=== PATIENT | female | born 1995 | race Caucasian/White ===

== ENCOUNTER 2021-04-16 23:48 | Emergency (ER) | payer OTHER ==
[2021-04-17 00:05] VITALS: BP 116/78; PULSE 106; TEMP 98; BMI 26.2
[2021-04-17] MEDS ORDERED: FAMOTIDINE 10 MG TABLET PO ONE (01:08)
[2021-04-17] MEDS ORDERED: DEXAMETHASONE SOD PHOSPHATE 10 MG/1 ML VIAL IM ONE (01:08)
[2021-04-17] MEDS ORDERED: diphenhydrAMINE HCL 25 MG CAPSULE (FP) PO ONE (01:08)
[2021-04-17] MEDS ORDERED: FAMOTIDINE 20 MG TABLET ONE (01:15)
== END 2021-04-17 02:52 | disposition home or self-care (01) ==
LOC: JER 23:48
DX: L50.9 Urticaria, unspecified (principal)
CPT/HCPCS: 84703; 99283-25; J1100

== ENCOUNTER 2022-01-22 17:14 | Emergency (ER) | payer OTHER ==
[2022-01-22 17:55] VITALS: BP 112/79; TEMP 99.8; BMI 26.3
[2022-01-22] MEDS ORDERED: SODIUM CHLORIDE 0.9% 500 ML INFUS.BAG IV ONE (18:24)
[2022-01-22 19:21] VITALS: PULSE 87
[2022-01-23 12:11] LABS: SARS-CoV-2 NAA Not Detected (Not Detected)
== END 2022-01-22 19:45 | disposition home or self-care (01) ==
LOC: JER 17:14
DX: O26.893 Other specified pregnancy related conditions, third trimester (principal); R50.9 Fever, unspecified; J09.X2 Influenza due to identified novel influenza A virus with other respiratory manifestations; R05.1 Acute cough; Z3A.28 28 weeks gestation of pregnancy
CPT/HCPCS: 87804; 87807; 99283-25; C9803-CS; U0003; U0005

== ENCOUNTER 2022-04-24 08:15 | Inpatient (IN) | payer OTHER ==
[2022-04-24] MEDS ORDERED: BUTORPHANOL TARTRATE 1 MG/ML VIAL IVPB PRN ×2 (09:35)
[2022-04-24 09:53] VITALS: BMI 27.8
[2022-04-24 10:56] LABS: BASO % 0.2 % (0-2.0); HEMATOCRIT 36.7 % (32.4-45.2); HEMOGLOBIN 12.6 GM/dL (10.7-15.3); LYMPH % 17.9 % (8-40); MCH 31.5 pg (25.7-33.7); MCHC 34.4 g/dl (32.0-36.0); MEAN CELL VOLUME 91.6 fl (80-96); MEAN PLT VOLUME 7.9 fl (7.5-11.1); MONO % 6.4 % (3.8-10.2); NEUT % 74.5 % (42.8-82.8); PLATELET COUNT 235 10^3/uL (134-434); RBC 4.01 M/mm3 (3.60-5.2); RDW 13.8 % (11.6-15.6); WHITE BLOOD COUNT 8.2 K/mm3 (4.0-10.0)
[2022-04-24 11:00] LABS: INR 0.9 (0.83-1.09); PROTHROMBIN TIME (PATIENT) 10.3 SEC (9.7-13.0)
[2022-04-24 11:03] LABS: ACTIVATED PTT 28.9 SECONDS (25.2-36.5)
[2022-04-24 11:28] LABS: CREATININE 0.6 mg/dL (0.55-1.3)
[2022-04-24] MEDS: ELECTROLYTE-148 SOLN 1,000 ML IV SCH ×3 (12:30→21:30)
[2022-04-24] MEDS ORDERED: PROMETHAZINE HCL 25 MG/1 ML VIAL ONE (12:32)
[2022-04-24] MEDS ORDERED: BUTORPHANOL TARTRATE 2 MG/ML VIAL ONE (12:32)
[2022-04-24] MEDS ORDERED: PROMETHAZINE HCL 25 MG/1 ML VIAL IVPB ONE (13:00)
[2022-04-24] MEDS ORDERED: FENTANYL/BUPIVACAINE/NS/PF - PCEA - 50 ML DISP.SYRIN EP ONE ×4 (15:13→23:06)
[2022-04-24] MEDS: FENTANYL/BUPIVACAINE/NS/PF - PCEA - 50 ML DISP.SYRIN EP SCH ×2 (15:39→19:35)
[2022-04-24] MEDS ORDERED: NALOXONE HCL 0.4 MG/ML VIAL IVPUSH PRN (15:56)
[2022-04-25] MEDS ORDERED: AMPICILLIN - 2 GM in SODIUM CHLORIDE 100 ML IVPB ONE (01:00)
[2022-04-25] MEDS ORDERED: AMPICILLIN SODIUM 2 GM VIAL ONE (01:07)
[2022-04-25] MEDS ORDERED: IBUPROFEN 800 MG/8 ML IJ IVPB PRN (02:06)
[2022-04-25] MEDS ORDERED: ACETAMINOPHEN 325 MG TABLET (FP) PO PRN (02:06)
[2022-04-25] MEDS ORDERED: METHYLERGONOVINE MALEATE 0.2 MG/1 ML AMP IM PRN (02:06)
[2022-04-25] MEDS ORDERED: OXYTOCIN 20 UNITS in 0.9% NS 20 UNIT/1,000 ML INFUS.BAG IV SCH (02:15)
[2022-04-25] MEDS ORDERED: FENTANYL/BUPIVACAINE/NS/PF - PCEA - 50 ML DISP.SYRIN EP ONE ×2 (02:43→05:48)
[2022-04-25] MEDS: FENTANYL/BUPIVACAINE/NS/PF - PCEA - 50 ML DISP.SYRIN EP SCH ×2 (02:50→05:50)
[2022-04-25] MEDS ORDERED: OXYTOCIN 30 UNITS in 0.9% NS 30 UNIT/500 ML INFUS.BAG IVPB SCH (04:15)
[2022-04-25] MEDS ORDERED: AMPICILLIN SODIUM 1 GM VIAL ONE (04:41)
[2022-04-25] MEDS ORDERED: AMPICILLIN - 1 GM in SODIUM CHLORIDE 100 ML IVPB SCH (05:00)
[2022-04-25] MEDS ORDERED: LIDOCAINE HCL/EPINEPHRINE/PF 20 ML VIAL ONE (06:39)
[2022-04-25] MEDS ORDERED: SUCCINYLCHOLINE CHLORIDE 200 MG/10 ML SYRINGE ONE (07:00)
[2022-04-25] MEDS ORDERED: PROPOFOL 20 ML ONE ×3 (07:01)
[2022-04-25] MEDS ORDERED: ceFAZolin SODIUM 1 GM VIAL ONE (07:23)
[2022-04-25] MEDS ORDERED: KETOROLAC TROMETHAMINE 30 MG/1 ML VIAL ONE (07:24)
[2022-04-25] MEDS ORDERED: ONDANSETRON 4 MG/2 ML VIAL ONE (07:24)
[2022-04-25] MEDS ORDERED: OXYTOCIN 10 UNITS/ML VIAL ONE (07:26)
[2022-04-25] MEDS ORDERED: morphine SULFATE/PF 1 MG/2 ML (2cc Syringe - QUVA) ONE ×4 (07:38)
[2022-04-25] MEDS ORDERED: AZITHROMYCIN IVPB 500 MG/250 ML BAG IVPB ONE (07:51)
[2022-04-25] MEDS ORDERED: SODIUM CHLORIDE 0.9% P/F 10 ML VIAL IJ ONE (07:56)
[2022-04-25] MEDS ORDERED: ONDANSETRON 4 MG/2 ML VIAL IVPUSH PRN (08:14)
[2022-04-25 09:29] LABS: CORD BASE EXCESS -5.1 mmol/L (0-2); CORD PCO2 43.1 mmHg (30-78); CORD pH 7.306 (7.14-7.44)
[2022-04-25 09:32] LABS: CORD BASE EXCESS -7.3 mmol/L (0-2); CORD HCO3 18.9 mmHg (20-29); CORD PCO2 40.7 mmHg (30-78); CORD pH 7.285 (7.14-7.44)
[2022-04-25] MEDS ORDERED: IBUPROFEN 800 MG/8 ML IJ IVPB ONE (09:46)
[2022-04-25] MEDS ORDERED: oxyCODONE HCL 5 MG TABLET PO PRN (14:06)
[2022-04-25 17:12] LABS: BASO % 0.2 % (0-2.0); EOS % 0.7 % (0-4.5); HEMATOCRIT 32.8 % (32.4-45.2); HEMOGLOBIN 10.8 GM/dL (10.7-15.3); LYMPH % 8.6 % (8-40); MCH 30.6 pg (25.7-33.7); MCHC 33.1 g/dl (32.0-36.0); MEAN CELL VOLUME 92.5 fl (80-96); MEAN PLT VOLUME 8.3 fl (7.5-11.1); MONO % 5.4 % (3.8-10.2); NEUT % 85.1 % (42.8-82.8); PLATELET COUNT 193 10^3/uL (134-434); RBC 3.54 M/mm3 (3.60-5.2); RDW 13.6 % (11.6-15.6); WHITE BLOOD COUNT 12.8 K/mm3 (4.0-10.0)
[2022-04-26] MEDS ORDERED: BISACODYL 10 MG SUPP.RECT RC PRN (02:06)
[2022-04-26] MEDS: SIMETHICONE 80 MG TAB.CHEW (FP) PO PRN ×3 (06:34→23:01)
[2022-04-26] MEDS: IBUPROFEN 600 MG TABLET (FP) PO PRN ×3 (06:34→23:01)
[2022-04-26 08:55] VITALS: RESP 18
[2022-04-26] MEDS ORDERED: oxyCODONE HCL 5 MG TABLET PO PRN (09:00)
[2022-04-26 09:17] LABS: BASO % 0.1 % (0-2.0); EOS % 2.9 % (0-4.5); HEMATOCRIT 32.1 % (32.4-45.2); HEMOGLOBIN 10.8 GM/dL (10.7-15.3); LYMPH % 6.2 % (8-40); MCH 31.4 pg (25.7-33.7); MCHC 33.6 g/dl (32.0-36.0); MEAN CELL VOLUME 93.4 fl (80-96); MEAN PLT VOLUME 8.2 fl (7.5-11.1); MONO % 5.1 % (3.8-10.2); NEUT % 85.7 % (42.8-82.8); PLATELET COUNT 189 10^3/uL (134-434); RBC 3.44 M/mm3 (3.60-5.2); RDW 13.8 % (11.6-15.6); WHITE BLOOD COUNT 11.2 K/mm3 (4.0-10.0)
[2022-04-26] MEDS ORDERED: DIPHTH,PERTUSS(ACELL),TET 0.5 ML DISP.SYRIN IM ONE (12:00)
[2022-04-27] MEDS: IBUPROFEN 600 MG TABLET (FP) PO PRN (11:04)
[2022-04-27 15:42] VITALS: BP 130/80; PULSE 66; TEMP 98.7
== END 2022-04-27 15:45 | disposition home or self-care (01) | DRG 540 ==
LOC: JLDR 08:15 → J3W 04-25 10:10
PROVIDERS: ADMIT Obstetrics & Gynecology; ATTEND Obstetrics & Gynecology
PROC: 10D00Z1 Extraction of Products of Conception, Low, Open Approach (ICD-10-PCS; principal; 2022-04-25)
DX: O48.0 Post-term pregnancy (principal); O62.0 Primary inadequate contractions; Z37.0 Single live birth; Z3A.41 41 weeks gestation of pregnancy; O99.214 Obesity complicating childbirth
CPT/HCPCS: 36415; 36600; 59025; 80048; 82803; 85025; 85610; 85730; 86780; 86850; 86900; 86901; 88307-TC; 90715; C9803-CS; U0003; U0005

== ENCOUNTER 2024-01-13 03:57 | Day surgery (SDC) | payer OTHER ==
[2024-01-09 11:56] VITALS: BMI 25.6
[2024-01-13] MEDS ORDERED: FENTANYL CITRATE/PF 50 MCG/ML VIAL ONE ×2 (10:24→10:50)
[2024-01-13] MEDS ORDERED: ACETAMINOPHEN 325 MG TABLET (FP) PO PRN (10:24)
[2024-01-13] MEDS ORDERED: MIDAZOLAM HCL 2 MG/2 ML SINGLE DOSE VIAL ONE (10:24)
[2024-01-13] MEDS ORDERED: IBUPROFEN 400 MG TABLET (FP) PO PRN (10:24)
[2024-01-13] MEDS ORDERED: PROPOFOL 40 ML ONE ×2 (10:43→11:41)
[2024-01-13] MEDS ORDERED: SUCCINYLCHOLINE CHLORIDE 200 MG/10 ML SYRINGE ONE (10:44)
[2024-01-13] MEDS ORDERED: KETOROLAC TROMETHAMINE 30 MG/1 ML VIAL ONE (10:53)
[2024-01-13] MEDS ORDERED: DEXAMETHASONE SOD PHOSPHATE 4 MG/1 ML VIAL ONE (10:53)
[2024-01-13] MEDS ORDERED: LIDOCAINE HCL/PF 2% SDV 5ML VIAL ONE (10:53)
[2024-01-13] MEDS ORDERED: ONDANSETRON 4 MG/2 ML VIAL ONE (10:53)
[2024-01-13 13:28] VITALS: TEMP 96.8
[2024-01-13 15:13] VITALS: BP 117/64; PULSE 64; RESP 17
== END 2024-01-13 15:22 | disposition home or self-care (01) ==
LOC: JASU-SURG 03:57
PROVIDERS: ATTEND Obstetrics & Gynecology
PROC: 0UB98ZZ Excision of Uterus, Via Natural or Artificial Opening Endoscopic (ICD-10-PCS; principal; 2024-01-13 09:00)
DX: D25.0 Submucous leiomyoma of uterus (principal); N92.0 Excessive and frequent menstruation with regular cycle
CPT/HCPCS: 81025; 88305-TC; 94760